=== PATIENT | female | born 1995 | race Caucasian/White ===

== ENCOUNTER 2020-06-28 17:11 | Emergency (ER) | payer BC ==
[2020-06-28 20:45] LABS: HEMOGLOBIN 12.3 gm/dl (12.3-15.3); RED BLOOD COUNT 4.56 M/UL (4.00-5.10)
[2020-06-28 21:08] LABS: BUN/CREATININE RATIO 17 (0-10)
[2020-06-28] MEDS ORDERED: KEPPRA1000 MG PO (22:37)
== END 2020-06-28 23:30 | disposition home or self-care (01) ==
LOC: ER1 17:11
PROVIDERS: Family Medicine
DX: S06.6X9A Traumatic subarachnoid hemorrhage with loss of consciousness of unspecified duration, initial encounter (principal); V86.59XA Driver of other special all-terrain or other off-road motor vehicle injured in nontraffic accident, initial encounter; Z23 Encounter for immunization
CPT/HCPCS: 70450; 71045; 72125; 80053; 82550; 82553; 83874; 84484; 84703; 85025; 90471; 90715; 93005; 96374; 96375; 99284; J2270; J2405

== ENCOUNTER 2020-07-01 21:16 | Emergency (ER) | payer BC ==
[~2020-07-01 21:16] MED LIST: KEPPRA1000 MG PO
[2020-07-01] MEDS ORDERED: ONDANSETRON ODT4 MG SL (23:50)
== END 2020-07-02 00:25 | disposition home or self-care (01) ==
LOC: ER1 21:16
DX: S06.6X1A Traumatic subarachnoid hemorrhage with loss of consciousness of 30 minutes or less, initial encounter (principal); Z79.899 Other long term (current) drug therapy; X58.XXXA Exposure to other specified factors, initial encounter; S50.811A Abrasion of right forearm, initial encounter
CPT/HCPCS: 70450; 96374; 96375; 99283; J1200; J1885; J2765